=== PATIENT | male | born 1955 | race Caucasian/White ===

== ENCOUNTER 2018-10-29 00:59 | Observation (INO) ==
[2018-10-29] MEDS ORDERED: ASPIRIN 81 MG TAB.CHEW ONE (01:14)
[2018-10-29] MEDS ORDERED: ASPIRIN 81 MG TAB.CHEW PO ONE (01:22)
--- NOTE | 2018-10-29 01:22 | ERNOTE ---
Chest Pain/Cardiac HPI Date of Service: 10/29/18 Chief Complaint: Chest Pain Time Seen by Provider: 10/29/18 01:17 Source: patient Exam Limitations: no limitations Immunizations: IMMUNIZATION HX Immunizations Up to Date Yes History of Influenza Vaccine Yes Hx Pneumococcal Vaccination No Allergies/Adverse Reactions: Allergies hydrocodone Adverse Reaction (Verified 10/29/18 01:50) Home Medications: HOME MEDICATIONS Omeprazole [Prilosec] 20 mg PO DAILY 08/07/15 [Last Taken 10/28/18 21:00] Simvastatin [Zocor] 40 mg PO DAILY 08/07/15 [Last Taken 10/28/18 21:00] amLODIPine BESYLATE [Norvasc] 5 mg PO DAILY 08/07/15 [Last Taken 10/28/18 07:00] metFORMIN HCL [Glucophage] 1,000 mg PO DAILY 08/07/15 [Last Taken 10/28/18 07:00] Losartan Potassium [Cozaar] 50 mg PO DAILY 08/31/15 [Last Taken 10/28/18 07:00] RX: Aspirin 81 mg PO DAILY 08/31/15 [Last Taken 10/28/18 07:00] Insulin Glargine,Hum.rec.anlog [Basaglar Kwikpen U-100] 60 unit SQ DAILY 10/29/18 [Last Taken 10/28/18 07:00] Narrative: 63-year-old male comes to emergency room complaining onset of bilateral ago of left chest pain radiating around the chest and around to his back describes it as a 4 out of 10 this is not the first time this is happened first occurred 3 weeks ago patient denies any shortness of breath or diaphoresis but does feel like a heaviness also radiating up to both shoulders he has no prior history of coronary artery disease though he is a diabetic and has does have high blood pressure he was taking aspirin until several weeks ago and stopped his he said he was starting to have nosebleeds has not had a stress test in many years and his family history his father had coronary artery disease late in life right now he is comfortable major distress Date (Duration): 10/29/18 Time (Timing): :19 Timing: constant Severity/Quality: mild Location: central, shoulder, back Chest Pain Radiation: shoulders Activities at Onset: none Modifying Factors - Improves: Present: nothing Modifying Factors - Worsens: Present: nothing Nitro Today/Relief: no nitro taken today Aspirin Treatment Today: no aspirin today Associated Symptoms: Present: denies symptoms Prior Chest Pain/Cardiac Workup: Reports: prior chest pain, no prior cardiac workup Review of Systems - Review of Systems Constitutional: Present: no symptoms reported EYE: Present: no symptoms reported ENT: Present: other - Nosebleeds Respiratory: Present: no symptoms reported Cardiology: Present: chest pain Gastrointestinal/Abdominal: Present: no symptoms reported Genitourinary: Present: no symptoms reported Musculoskeletal: Present: no symptoms reported Skin: Present: no symptoms reported Neurological: Present: no symptoms reported All Other Systems: All systems neg except as marked Medical History (Last Reviewed 10/29/18 @ 01:21 by Darren Muhammad MD) Diabetes High cholesterol Hypertension Surgical History: Surgical History (Last Updated 10/29/18 @ 01:47 by Deisy Ely RN) H/O right knee surgery Family History: Family History (Last Updated 10/29/18 @ 01:49 by Deisy Ely RN) Father Diabetes Hypertension Mother Stomach cancer Social History: Preferred Language Persian Do you have any yarsani or No cultural preference? Smoking Status Never smoker Abuse History No History of abuse Psych History No pertinent hx Alcohol Use occasionally Drug Use none No Social History Section defined Physical Exam - Physical Exam General Appearance: Present: wd/wn, alert, no apparent distress Head Exam: Present: normal inspection Eye Exam: Normal inspection: bilateral, PERRL: bilateral, EOMI: bilateral Ears, Nose, Throat: Present: normal ENT inspection Neck: Present: normal inspection Respiratory: Present: no respiratory distress Cardiovascular/Chest: Present: regular rate, rhythm Peripheral Pulses: N=norm/S=strong/W=weak/B=bound/A=absent: Carotid (R): Normal, Carotid (L): Normal Gastrointestinal/Abdominal: Present: normal bowel sounds Back Exam: Present: normal inspection Extremity Exam: Present: normal inspection, joint swelling Neurological Exam: Present: alert Skin Exam: Present: normal color Lymphatic Exam: Present: no adenopathy Progress - Results and Orders Patient's Lab Results:: I have reviewed the patient's lab results. - Vital Signs Patient's Vital Signs:: I have reviewed the patient's vital signs. Vital Signs: Vital Signs 10/29/18 01:06 Temperature 37.1 C Pulse Rate 67 Respiratory Rate 14 Blood Pressure 194/91 H - EKG EKG #1 EKG: NSR EKG read: Interp. by me EKG Comments: Heart rate 65 no acute changes - X-Ray X-Ray #1 X-Ray: chest Interpretation: Interp. 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 distal to the origin of the great vessels as the proximal descending thoracic aorta is a focal outpouching measuring 1.8 x 1.3cm consistent and are compatible with a focal aneurysmal dilatation follow-up with cardiology or vascular recommended he also has a right thyroid lobe nodule follow-up recommended - Progress/Reassessment Chief Complaint: Chest Pain Plan - Plan Plan: Patient after 3 nitro states that the pain is somewhat better from a 4 down to a 2-1/2-3 he still feels the pain but mostly in the back feel at this point we should probably do a CAT scan of the chest is too limiting any mediastinal or vascular issues Chest pain patient's initial set of cardiac enzymes are within normal limits blood sugar is elevated at 196 pain is still around 2 but mostly in his mid back CTA showed small focal aneurysmal dilatation in the proximal descending aorta and 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 Gleason he will be the admitting attending patient will be admitted for further workup Departure Clinical Impression: Chest pain in adult - Departure Disposition: Short Term Hospital Inpatient Condition: Good
[2018-10-29] MEDS ORDERED: NITROGLYCERIN 0.4 MG/TAB BTL SL ONE ×3 (01:23→01:40)
[2018-10-29] MEDS ORDERED: ASPIRIN 325 MG TABLET.DR PO ONE (01:23)
[2018-10-29 01:39] LABS: Hematocrit 40.4 % (42.0-52.0); Hemoglobin 14.3 gm/dL (13.5-18.0); Mean Corpuscular Hemoglobin 31.8 pg (27-31); Mean Corpuscular Hgb Conc 35.4 g/dl (32-36); Mean Platelet Volume 9.5 fl (8-11.3); Neutrophil # 3.9 K/mm3 (1.3-6.0); Neutrophil % 54.7 % (42-75.0); Platelet Count 239 K/mm3 (150-450); Red Blood Count 4.49 M/mm3 (4.7-6.0); Red Cell Distribution Width 12.2 % (11.5-14.0); White Blood Count 7.1 K/mm3 (4.0-10.5)
[2018-10-29] MEDS ORDERED: NORMAL SALINE 1,000 ML IV ONE (01:59)
[2018-10-29 02:12] LABS: ALT 46 U/L (19-67); AST 21 U/L (0-48); Albumin * 3.7 gm/dl (3.4-5.0); Alkaline Phosphatase * 84 U/L (50-170); Anion Gap 13.3 mmol/L (6.8-13.8); Bilirubin, Total 0.7 mg/dL (0.0-1.1); Blood Urea Nitrogen 15 mg/dL (6-23); Ca. Corrected For Albumin 9.4 mg/dL (8.4-10.2); Calcium * 9.5 mg/dL (7.9-10.9); Carbon Dioxide 27.8 mmol/L (24-32.6); Chloride 107 mmol/L (97-106); Glucose * 197 mg/dL (70-110); Potassium 4.1 mmol/L (3.4-4.6); Sodium 144 mmol/L (132-142); Total Protein 6.7 gm/dL (6.2-8.2)
[2018-10-29 02:13] LABS: Troponin I Less than 0.017 ng/mL (0.00-0.10)
[2018-10-29] MEDS ORDERED: HYDROmorphone HCL 1 MG/ML DISP.SYRIN IV ONE ×2 (03:16→10:15)
[2018-10-29 07:18] VITALS: BP 163/86
--- NOTE | 2018-10-29 09:38 | HP ---
Chief Complaint - Chief Complaint Date of Service: 10/29/18 Time of Service: 09:27 Chief Complaint: Chest and Back Pain History of Present Illness: Braeden is a 63 yo male with history of insulin dependent Diabetes Mellitus Type II, Hypertension, and Hyperlipidemia. He was at work when he began having anterior chest pain that radiated in a circular motion to his back. He tried stretching and popping his back, but this did not help. With continued pain he presented to [facility] ER. He was given Nitro x 3 which resolved his chest pain, but back pain persists. He had CT imaging in the ER which does show a 1.8cm proximal descending aortic aneurysm, however no evidence of dissection. Otherwise his initial work up was negative for acute MO with undetectable troponin and EKG shows normal sinus rhythm. He reports prior work up with treadm ill stress testing, but this was 10 or more years ago. 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 Smoking Status Former smoker Have you smoked in the past 12 No months Do you dip or chew tobacco No Abuse History No History of abuse Psych History No pertinent hx Alcohol Use occasionally Drug Use none No Social History Section defined Review Of Systems (GEN) - Review of Systems Generalized/Overall Review: Present: Diaphoresis. Absent: Weakness, Chills, Fever EENTM: Present: No Symptoms Reported Respiratory: Present: Shortness of Breath. Absent: Cough, Orthopnea Cardiac: Present: Chest Pain. Absent: Edema, Palpitations, Syncope Abdominal: Absent: Nausea, Vomiting, Hematemesis, Abdominal Pain Genitourinary: Present: No Symptoms Reported Musculoskeletal: Present: No Symptoms Reported Neurological: Present: No Symptoms Reported Skin: Present: No Symptoms Reported Endocrine: Present: No Symptoms Reported Immunizations: IMMUNIZATION HX Immunizations Up to Date Yes History of Influenza Vaccine Yes Hx Pneumococcal Vaccination No Allergies/Adverse Reactions: Allergies Allergy/AdvReac Type Severity Reaction Status Date / Time hydrocodone AdvReac Verified 10/29/18 01:50 Home Medications: HOME MEDICATIONS Omeprazole [Prilosec] 20 mg PO DAILY 08/07/15 [Last Taken 10/28/18 21:00] Simvastatin [Zocor] 40 mg PO DAILY 08/07/15 [Last Taken 10/28/18 21:00] amLODIPine BESYLATE [Norvasc] 5 mg PO DAILY 08/07/15 [Last Taken 10/28/18 07:00] metFORMIN HCL [Glucophage] 1,000 mg PO DAILY 08/07/15 [Last Taken 10/28/18 07:00] Aspirin 81 mg PO DAILY 08/31/15 [Last Taken 10/28/18 07:00] Losartan Potassium [Cozaar] 50 mg PO DAILY 08/31/15 [Last Taken 10/28/18 07:00] Insulin Glargine,Hum.rec.anlog [Basaglar Kwikpen U-100] 60 unit SQ DAILY 10/29/18 [Last Taken 10/28/18 07:00] Exam - Exam Vital Signs: Vital Signs - Last Taken Temp 36.3 C 10/29/18 07:00 Pulse 63 10/29/18 07:00 Resp 16 10/29/18 07:00 BP 163/86 H 10/29/18 07:00 Pulse Ox 97 10/29/18 07:00 Constitutional: Present: Alert, Oriented x3, Cooperative, No distress ENT Exam: Present: hearing grossly normal Eye Exam: bilateral eye: normal inspection Respiratory: Present: lungs clear, normal breath sounds Cardiovascular/Chest: Present: regular rate, rhythm, no murmur Abdomen: Present: Normal bowel sounds, soft, nontender, nondistended, no hepatospenomegaly, no masses Extremity: Present: normal inspection Skin Exam: Present: normal color, warm/dry, no cyanosis Lymphatic: Present: no adenopathy Appearance: Present: appropriate appearance, appropriate insight Eye contact: Present: cooperative, good eye contact, normal speech Thoughts: Present: normal thought pattern, no apparent hallucination Diagnostic Studies: Abnormal Lab Results 10/29/18 10/29/18 10/29/18 Range/Units 01:35 01:35 07:39 RBC 4.49 L (4.7-6.0) M/mm3 Hct 40.4 L (42.0-52.0) % MCH 31.8 H (27-31) pg Sodium 144 H (132-142) mmol/L Plasma Sodium 146 H (130-142) mmol/L Chloride 107 H (97-106) mmol/L Random Glucose 197 H (70-110) mg/dL Troponin I 0.363 H* (0.00-0.10) ng/mL Laboratory Results WBC 7.1 K/mm3 (4.0-10.5) 10/29/18 01:35 RBC 4.49 M/mm3 (4.7-6.0) L 10/29/18 01:35 Hgb 14.3 gm/dL (13.5-18.0) 10/29/18 01:35 Hct 40.4 % (42.0-52.0) L 10/29/18 01:35 MCV 90.0 fl (78-100) 10/29/18 01:35 MCH 31.8 pg (27-31) H 10/29/18 01:35 MCHC 35.4 g/dl (32-36) 10/29/18 01:35 RDW 12.2 % (11.5-14.0) 10/29/18 01:35 Plt Count 239 K/mm3 (150-450) 10/29/18 01:35 MPV 9.5 fl (8-11.3) 10/29/18 01:35 Immature Gran % (Auto) 0.30 % (0.001-0.429) 10/29/18 01:35 Immature Gran # (Auto) 0.02 K/mm3 (0.000-0.0310) 10/29/18 01:35 Neutrophils % 54.7 % (42-75.0) 10/29/18 01:35 Lymphocytes % 34.5 % (20-51) 10/29/18 01:35 Monocytes % 7.3 % (0.0-9) 10/29/18 01:35 Eosinophils % 2.8 % (0.0-3.0) 10/29/18 01:35 Basophils % 0.4 % (0.0-1.0) 10/29/18 01:35 Nucleated RBC % 0.0 k/mm3 (0-1) 10/29/18 01:35 Neutrophils # 3.9 K/mm3 (1.3-6.0) 10/29/18 01:35 Lymphocytes # 2.46 k/mm3 (1.5-3.5) 10/29/18 01:35 Monocytes # 0.5 k/mm3 (0.0-1.0) 10/29/18 01:35 Eosinophils # 0.2 k/mm3 (0.0-0.7) 10/29/18 01:35 Absolute Basophils 0.0 k/mm3 (0.0-0.1) 10/29/18 01:35 Sodium 144 mmol/L (132-142) H 10/29/18 01:35 Plasma Sodium 146 mmol/L (130-142) H 10/29/18 01:35 Potassium 4.1 mmol/L (3.4-4.6) 10/29/18 01:35 Chloride 107 mmol/L (97-106) H 10/29/18 01:35 Carbon Dioxide 27.8 mmol/L (24-32.6) 10/29/18 01:35 Anion Gap 13.3 mmol/L (6.8-13.8) 10/29/18 01:35 BUN 15 mg/dL (6-23) 10/29/18 01:35 Creatinine 1.00 mg/dL (0.4-1.4) 10/29/18 01:35 Est GFR (Non-Af Amer) 81 mL/min (60-130) D 10/29/18 01:35 BUN/Creatinine Ratio 15.0 (9.0-21.6) 10/29/18 01:35 Random Glucose 197 mg/dL (70-110) H 10/29/18 01:35 Calcium 9.5 mg/dL (7.9-10.9) 10/29/18 01:35 Calcium Adj for Albumin 9.4 mg/dL (8.4-10.2) 10/29/18 01:35 Total Bilirubin 0.7 mg/dL (0.0-1.1) 10/29/18 01:35 AST 21 U/L (0-48) 10/29/18 01:35 ALT 46 U/L (19-67) 10/29/18 01:35 Alkaline Phosphatase 84 U/L (50-170) 10/29/18 01:35 Troponin I 0.363 ng/mL (0.00-0.10) H* 10/29/18 07:39 Total Protein 6.7 gm/dL (6.2-8.2) 10/29/18 01:35 Albumin 3.7 gm/dl (3.4-5.0) 10/29/18 01:35 Assessment/Plan - Narrative Narrative: Braeden is a 63 yo male with: 1) Chest Pain with risk factors of DMII, HTN, HLP. Initial evaluation in the ER was negative for acute MO with undetectable troponin and normal sinus rhythm on EKG. Will admit to observation with serial troponin and EKG. - Assessment/Plan (1) Insulin dependent diabetes mellitus Problem: Acute (2) Hypertension Problem: Acute (3) Hyperlipidemia Problem: Acute (4) Chest pain in adult Problem: Acute
--- NOTE | 2018-10-29 10:52 | DS ---
Transfer Discharge Summary - Diagnosis(s)/Problems (1) NSTEMI (non-ST elevated myocardial infarction) Problem: Acute (2) Insulin dependent diabetes mellitus Problem: Acute (3) Hypertension Problem: Acute (4) Hyperlipidemia Problem: Acute (5) Chest pain in adult Problem: Acute - Course Description of Stay: Braeden is a 63 yo male that was admitted for chest pain. His cardiac risk factors included HTN, HLP, smoking hx, and insulin-dependent DMII. He presented with anterior chest pain with circular radiation to his back. The anterior chest pain resolved with nitro x 3, but his back pain persists. He had a CT of his chest showing 1.8cm proximal descending aortic aneurysm, but no evidence of dissection. Otherwise his initial work up was negative for acute ND with undetectable troponin and normal sinus rhythm on EKG. He was admitted to observation. His 6hr troponin went from being undetectable to 0.3 (indeterminate range). He had no EKG changes on telemetry. Discussed with Cardiology at [facility], Dr. Henderson. He was accepted in transfer to [facility]. He will be transferred by ambulance this morning. Procedures Performed: none - Results and Findings Results and Findings: Laboratory Results - last 24 hr 10/29/18 10/29/18 10/29/18 01:35 01:35 07:39 WBC 7.1 RBC 4.49 L Hgb 14.3 Hct 40.4 L MCV 90.0 MCH 31.8 H MCHC 35.4 RDW 12.2 Plt Count 239 MPV 9.5 Immature Gran % (Auto) 0.30 Immature Gran # (Auto) 0.02 Neutrophils % 54.7 Lymphocytes % 34.5 Monocytes % 7.3 Eosinophils % 2.8 Basophils % 0.4 Nucleated RBC % 0.0 Neutrophils # 3.9 Lymphocytes # 2.46 Monocytes # 0.5 Eosinophils # 0.2 Absolute Basophils 0.0 Sodium 144 H Plasma Sodium 146 H Potassium 4.1 Chloride 107 H Carbon Dioxide 27.8 Anion Gap 13.3 BUN 15 Creatinine 1.00 Est GFR (Non-Af Amer) 81 D BUN/Creatinine Ratio 15.0 Random Glucose 197 H Calcium 9.5 Calcium Adj for Albumin 9.4 Total Bilirubin 0.7 AST 21 ALT 46 Alkaline Phosphatase 84 Troponin I Less than 0.017 0.363 H* Total Protein 6.7 Albumin 3.7 - Medications Medications: Active Medications Discontinued Medications Aspirin (Aspirin Chewable) 324 mg PO ONCE ONE Stop: 10/29/18 01:23 Last Admin: 10/29/18 01:18 Dose: 324 mg Documented by: Aspirin (Aspirin Enteric Coated) 325 mg PO ONCE ONE Stop: 10/29/18 01:24 Last Admin: 10/29/18 01:26 Dose: Not Given Documented by: Hydromorphone HCl (Dilaudid) 0.5 mg IV ONCE ONE Stop: 10/29/18 03:17 Last Admin: 10/29/18 03:26 Dose: 0.5 mg Documented by: Hydromorphone HCl (Dilaudid) 0.5 mg IV ONCE ONE Stop: 10/29/18 10:16 Last Admin: 10/29/18 10:30 Dose: 0.5 mg Documented by: Sodium Chloride (Sodium Chloride 0.9%) 1,000 mls @ 999 mls/hr IV .Q1H1M ONE Stop: 10/29/18 02:59 Last Infusion: 10/29/18 03:33 Dose: Infused Documented by: Nitroglycerin (Nitrostat) 0.4 mg SL ONCE ONE Stop: 10/29/18 01:24 Last Admin: 10/29/18 01:21 Dose: 0.4 mg Documented by: Nitroglycerin (Nitrostat) 0.4 mg SL ONCE ONE Stop: 10/29/18 01:25 Last Admin: 10/29/18 01:27 Dose: 0.4 mg Documented by: Nitroglycerin (Nitrostat) 0.4 mg SL ONCE ONE Stop: 10/29/18 01:41 Last Admin: 10/29/18 01:42 Dose: 0.4 mg Documented by: - Disposition Disposition: Short Term Hospital Inpatient Condition: Fair Discharge Date: 10/29/18
== END 2018-10-29 11:00 | disposition short-term general hospital (02) ==
LOC: ER 00:59 → MS 00:59
PROVIDERS: ADMIT Family Medicine; ATTEND Family Medicine
DX: I21.4 Non-ST elevation (NSTEMI) myocardial infarction; E11.8 Type 2 diabetes mellitus with unspecified complications; I71.9 Aortic aneurysm of unspecified site, without rupture; Z87.891 Personal history of nicotine dependence; Z79.4 Long term (current) use of insulin; E78.5 Hyperlipidemia, unspecified; I10 Essential (primary) hypertension
CPT/HCPCS: 36415; 71010; 71045; 71260; 80053; 84484; 85025; 93005; 96361; 96374; 96375; 96376; 99285; G0378